=== PATIENT | female | born 1985 | race Two or more races ===

== ENCOUNTER 2025-04-24 06:15 | Day surgery (SDC) | payer OTHER ==
[2025-04-19 10:42] VITALS: BP 118/82
[~2025-04-24] VITALS: Ht 160 cm; Wt 92.1 kg
[2025-04-24] MEDS ORDERED: POVIDONE-IODINE 118 ML BOTT TOP ONE (09:45)
[2025-04-24] MEDS ORDERED: RINGERS SOLUTION,LACTATED 1,000 ML IV SCH (16:00)
== END 2025-04-24 16:45 | disposition home or self-care (01) ==
LOC: CIR.AMB 06:15
PROVIDERS: ATTEND Student in an Organized Health Care Education/Training Program
DX: N93.8 Other specified abnormal uterine and vaginal bleeding (principal); D25.9 Leiomyoma of uterus, unspecified; Z88.8 Allergy status to other drugs, medicaments and biological substances